=== PATIENT | male | born 1985 | race Caucasian/White ===

== ENCOUNTER 2023-12-31 10:34 | Emergency (ER) | payer OTHER, SELFPAY ==
[2023-12-31 10:37] VITALS: BP 133/90; PULSE 51; RESP 14; TEMP 36.8; O2SAT 99; BMI 21.1
[2023-12-31 10:43] VITALS: BP 126/73; PULSE 45; O2SAT 99
--- NOTE | 2023-12-31 10:59 | ED.SKABFB ---
HPI - Skin/Abscess/Foreign Bdy <ОЛЕГ Briceño Last Filed: 12/31/23 11:08> General Chief complaint: Skin/Abscess/Foreign Body Stated complaint: Allergic Reaction, Diff swallowing Time Seen by Provider: 12/31/23 10:58 Source: patient Mode of arrival: Ambulatory Limitations: no limitations History of Present Illness HPI narrative: This is a 38-year-old male presents emergency department due to mild difficulty swallowing onset earlier this morning after eating some overnight O2. He states he was not having known food allergies but states he may be allergic to while blueberries and almonds which she did have this morning. He denies any difficulty breathing and no significant distress. Denies any itchiness or rashes. Did take 50 mg Benadryl a couple of hours ago which she states is helping to improve his swallowing. Related Data Allergies Allergy/AdvReac Type Severity Reaction Status Date / Time No Known Drug Allergies Allergy Verified 12/31/23 10:37 Review of Systems <ОЛЕГ Bricñeo Last Filed: 12/31/23 11:08> Review of Systems Narrative: GENERAL: Denies chills, fatigue, malaise, fever, sweats. HEENT: Reports difficulty swallowing, Denies sinus pain, ear pain, sore throat, , dizziness. RESPIRATORY: Denies dyspnea, cough, wheezing, hemoptysis, sputum. CARDIOVASCULAR: Denies chest pain, palpitations, orthopnea, edema, GASTROINTESTINAL: Denies nausea, vomiting, abdominal pain, diarrhea, constipation, melena. : Denies dysuria, frequency, incontinence, hematuria, urinary retention. MUSCULOSKELETAL: denies weakness, joint pain, or bony pain SKIN: Denies rash, skin lesions, or other NEUROLOGIC: Denies weakness, headache, numbness, change in speech, confusion, seizures, incoordination. PSYCHIATRIC: No concerning psychosocial issues. 12 point review of systems is negative except for those stated above Patient History <ОЛЕГ Briceño Last Filed: 12/31/23 11:08> Social History Smoking Status: Unknown if ever smoked Smoking Status: Unknown if ever smoked alcohol intake frequency: holidays/special occasions only Substance Use Type: marijuana Exam <ОЛЕГ Briceño Last Filed: 12/31/23 11:08> Narrative Exam Narrative: GENERAL: Well-developed patient, in mild distress. HEAD: Atraumatic. Normocephalic. EYES: Pupils equal round and reactive. Extraocular motions intact. No scleral icterus. No injection or drainage. ENT: Nose without bleeding, purulent drainage. Throat without erythema, tonsillar hypertrophy or exudate. Airway patent. NECK: Trachea midline. Non tender EXTREMITIES: No edema or joint tenderness. NEURO: AOx3. SKIN: No rash or erythema of visible areas RESPIRATORY: Clear to auscultation. Breath sounds equal bilaterally. No wheezes, rales, or rhonchi. Initial Vital Signs Initial Vital Signs: Vital Signs Temperature 98.2 F 12/31/23 10:37 Pulse Rate 51 L 12/31/23 10:37 Respiratory Rate 14 12/31/23 10:37 Blood Pressure 133/90 12/31/23 10:37 Pulse Oximetry 99 12/31/23 10:37 Oxygen Delivery Method Room Air 12/31/23 10:37 <DO Sharif Sims Last Filed: 12/31/23 18:54> Initial Vital Signs Initial Vital Signs: Vital Signs Temperature 98.2 F 12/31/23 10:37 Pulse Rate 51 L 12/31/23 10:37 Respiratory Rate 14 12/31/23 10:37 Blood Pressure 133/90 12/31/23 10:37 Pulse Oximetry 99 12/31/23 10:37 Oxygen Delivery Method Room Air 12/31/23 10:37 Course <Cliff Ponce PA-C - Last Filed: 12/31/23 11:08> Orders Ordered: Discontinued Medications Prednisone (Prednisone 20 Mg Tablet) 40 mg PO NOW ONE Stop: 12/31/23 11:08 Last Admin: 12/31/23 11:15 Dose: 40 mg Documented By: RB Vital Signs Vital signs: Vital Signs - 8 hr 12/31/23 11:00 12/31/23 11:00 Pulse Rate 47 L Blood Pressure 124/78 Pulse Oximetry 98 <Sara Clifton DO - Last Filed: 12/31/23 18:54> Orders Ordered: Discontinued Medications Prednisone (Prednisone 20 Mg Tablet) 40 mg PO NOW ONE Stop: 12/31/23 11:08 Last Admin: 12/31/23 11:15 Dose: 40 mg Documented By: RB Vital Signs Vital signs: Vital Signs - 8 hr 12/31/23 11:00 12/31/23 11:00 Pulse Rate 47 L Blood Pressure 124/78 Pulse Oximetry 98 MDM - Skin/Abscess/Foreign Bdy <Cliff Ponce PA-C - Last Filed: 12/31/23 11:08> [facility] Narrative Medical decision making narrative: ED course: This is a 38-year-old male presents to the emergency department due to a possible mild allergic reaction. His symptoms are overall improving in no significant distress. No wheezing or edema noted in the oropharynx. Patient was given 40 mg of prednisone here in the emergency department as well as recommendations to take Benadryl for the rest of the day. No evidence of any kind of anaphylaxis. CC: Difficulty swallowing Complicating co-morbidities: None Data collected from: Previous notes Medical records reviewed: Patient was not been to this emergency department the past Differential considered, but not limited to: Anaphylaxis, allergic reaction, strep throat Exam documented above, pertinent findings include: No wheezing or evident edema in the oropharynx Lab Test results independently reviewed as above. Pertinent findings: None obtained Imaging studies independently reviewed: None obtained Scores Used: None MIPS Elements: None Consultations: None Treatments: 40 mg of prednisone Re-evaluations: None Discussion: Discussed plan with the patient was comfortable with the plan Diagnosis: Allergic reaction Disposition: see below, along with detailed discharge instructions that have been reviewed with patient as well as indications for ED re-evaluation and additional outpatient follow up Discharge Plan Departure Patient Disposition: Home Clinical Impression: Allergic reaction Activity Restrictions/Additional Instructions: Thank you for coming to the [facility] Emergency Department today. As we discussed you may have had a mild allergic reaction to something the eat. Overall exam is reassuring I am not seeing swelling in your throat or any wheezing in your lungs. The prednisone giving me today should help. Please continue to take the Benadryl throughout the day as recommended on the bottle. Please return to the emergency department if you develop any significant new or worsening shortness of breath, difficulty breathing or swallowing, or any other concerning signs or symptoms. I hope you feel better soon. Please follow up with your primary care provider within a week if your symptoms continue. If you do not have a primary care provider please contact the [facility] Resource line at [phone]. They will ask some questions about your medical history and help you get set up with a provider in the community. Stand Alone Forms: Patient Portal/API ED Sign-out <Sara Clifton, - Last Filed: 12/31/23 18:54> Cosign ED Attending Cosignature Attestation: I was immediately available in the department for consultation.
[2023-12-31 11:00] VITALS: BP 124/78; PULSE 47; O2SAT 98
[2023-12-31] MEDS: predniSONE 20 MG TABLET 40 MG PO (11:15)
== END 2023-12-31 11:24 | disposition home or self-care (01) ==
PROVIDERS: Emergency Provider Physician Assistant Medical
DX: T78.40XA Allergy, unspecified, initial encounter (principal); X58.XXXA Exposure to other specified factors, initial encounter
CPT/HCPCS: 99283